=== PATIENT | female | born 1945 | race Caucasian/White ===

== ENCOUNTER → 2020-05-12 | Outpatient (CLI) | payer MEDICARE ==
--- NOTE | 2020-05-12 15:56 | Diagnostic Imaging Report ---
EXAM: Renal Ultrasound INDICATION: ^URINARY TRACT INFECTION / MICROSCOPIC HEMATURIA COMPARISON: None TECHNIQUE: Transverse and longitudinal images of the kidneys and bladder were obtained. FINDINGS: Right Kidney: Length: 8.7 cm Appearance: Increased echogenicity. Collecting system: No hydronephrosis Stones: None Cyst/Mass: None Left Kidney: Length: 9.0 cm Appearance: Increased echogenicity. Collecting system: No hydronephrosis Stones: None Cyst/Mass: Small subcentimeter exophytic cyst is noted measuring up to 0.8 cm. Bladder: Bilateral ureteral jets are noted. Urinary bladder is otherwise unremarkable Incidentally noted increased echogenicity of the liver is also noted. IMPRESSION: 1. Medical renal disease. Small left renal cyst. Negative for hydronephrosis. 2. Hepatic steatosis. Signed by: Dontae Mojica MD on 05/12/2020 3:52 PM
== END ==
LOC: US 13:56
PROVIDERS: ATTEND Urology
DX: N39.0 Urinary tract infection, site not specified (principal); R31.9 Hematuria, unspecified
CPT/HCPCS: 76770